=== PATIENT | female | born 2000 | race Caucasian/White ===

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

== ENCOUNTER 2019-03-09 07:49 | Emergency (ER) | payer SELFPAY ==
[~2019-03-09] VITALS: Ht 165.1 cm; Wt 71.8 kg
[2019-03-09 07:54] VITALS: BP 134/63; PULSE 119; RESP 18; Ht 165.1 cm; Wt 71.8 kg
== END 2019-03-09 08:12 | disposition left against medical advice (07) ==
LOC: E/R 07:49
DX: Z53.21 Procedure and treatment not carried out due to patient leaving prior to being seen by health care provider (principal)

== ENCOUNTER 2019-03-09 08:23 | Outpatient (CLI) | payer BC ==
[~2019-03-09] VITALS: Ht 167.6 cm; Wt 71.8 kg
[2019-03-09 09:14] VITALS: Ht 167.6 cm; Wt 71.8 kg
[2019-03-09 09:15] VITALS: BP 115/69; PULSE 93; RESP 18
--- NOTE | 2019-03-09 11:49 | PSY ---
Date/Time of Note Date/Time of Note DATE: 03/09/19 TIME: 11:42 Psychiatric Subjective Eval Consent Pt consented to telemedicine: No Subjective Evaluation Patient location: inpatient History of present illness Patient is a 18-year-old female who is currently admitted in labor and delivery. On a [id number] evaluation, patient states she is expecting quadruplets, she is increasingly agitated when she was told that her test is negative and she was not . Patient started using obscenities, cursing the interviewer and stated that [facility] is not a good hospital because I cannot identify positive test. Patient's is focused on the facts that [facility] told her that she is . She has poor impulse control and poor coping skills discussed the risk and benefits of medication antipsychotic to help with the delusion but she declined. Patient actually got more irritable when medications were being discussed. Past psychiatric history Denies history of mental illness Hospitalization: other Medical history Problems Medical Problems: (1) Abdominal pain Status: Acute (2) Abdominal pain Status: Acute (3) Abdominal pain Status: Acute (4) Acute kidney insufficiency Status: Acute (5) Anxiety Status: Acute (6) Back pain Status: Acute (7) Constipation Status: Acute (8) Drug abuse Status: Acute (9) Dysfunctional uterine bleeding Status: Acute (10) Generalized body aches Status: Acute (11) Ovarian cyst Status: Acute (12) Pseudopregnancy Status: Acute (13) UTI (urinary tract infection) Status: Acute (14) UTI (urinary tract infection) Status: Acute (15) Vomiting Status: Acute Allergies: Coded Allergies: No Known Drug Allergies (Verified Allergy, Unknown, 03/11/18) Substance Abuse Substance abuse history: Yes (History of meth use last use was a week ago) Prior substance abuse treatmen: Yes Social History Marital status: other DPA/Conservatorship: No Psychiatric Objective Eval Review of Systems: Review of Systems: Not Applicable Physical Examination: Physical Examination: Not Applicable Energy: Adequate Interest: Adequate Mental Status Examination: Appearance: Groomed Eye Contact: Good Psychomotor Activity: Normal Behavior: Cooperative (But paranoid) Speech: Clear AFFECT: Flat Mood: Angry, Irritable Though Process: Tangential Orientation: x4 Insight: Severe Judgement: Severe Attention Span: Distractible Assessment and Plan Assessment/Diagnosis Diagnosis Psychosis not otherwise specified Recommendation/Plan Medication Management Declined Multiple antipsychotics: No Psychotherapy Provide supportive therapy Discharge Disposition: Other Legal Status: Voluntary DOREEN FAIRBANKS NP March 09, 2019 11:49
--- NOTE | 2019-03-09 13:30 | EN ---
Date/Time of Note Date/Time of Note DATE: 03/09/19 TIME: 13:29 Event Note Medicine Medicine Event Note Rapid response team was called. Patient is a 18-year-old female who is not , who insists that she is. Multiple work-up was done, patient was deemed likely psych, nurse practitioner psychiatry had reportedly tried to see her however she kicked her out. Patient had her eyes closed however was breathing normally, vital signs completely within normal limits, blood pressure within normal limits, O2 saturation well into the upper 90s. Patient would respond and even yell into full complete sentences indicating that she is alert and oriented x4. Patient does have a significant psych component to what ever is going on right now. This is highly unlikely a true medical emergency. Patient was exhibiting some tightening and shaking of her right hand however once this was questioned she proceeded to stop tightening and shaking and instead begin to be verbally abusive to the staff and myself, once again speaking in full and complete sentences with no other indications suggesting true altered mental status. Housing hall supervisor and charge nurse will now take over and continue to speak with patient, I recommend sending to ER for psych eval. SHERRY DE LEON March 09, 2019 13:30
== END 2019-03-09 13:47 | disposition home or self-care (01) ==
LOC: OBT 08:23 → L-D 08:25 → OBT 13:47
PROVIDERS: ATTEND Obstetrics & Gynecology Obstetrics
DX: Z32.02 Encounter for pregnancy test, result negative (principal); F45.8 Other somatoform disorders; R10.9 Unspecified abdominal pain; N93.8 Other specified abnormal uterine and vaginal bleeding; N39.0 Urinary tract infection, site not specified; F19.10 Other psychoactive substance abuse, uncomplicated; M54.9 Dorsalgia, unspecified; F41.9 Anxiety disorder, unspecified; F15.11 Other stimulant abuse, in remission
CPT/HCPCS: 76856; 80307; 84703; Z7500; Z7610; A4310; G0463

== ENCOUNTER 2019-03-09 13:49 | Emergency (ER) | payer BC ==
[~2019-03-09] VITALS: Wt 58.0 kg
--- NOTE | 2019-03-09 14:21 | ERD ---
ER Documentation Chief Complaint Chief Complaint HPI This is a 18-year-old female that had presented to the emergency department at [facility] stating that she was experiencing abdominal pain and that she was 23 weeks . The patient immediately went up to labor and delivery. They had performed an ultrasound and ancillary laboratory work and indicated to the patient that she was not . At that time she became very upset and started to yell at nursing staff had called the psychiatric nurse practitioner Melissa. Melissa had come into the room but the patient yelled at her and refused to speak with her. I spoke with the labor and delivery nurse who indicates they have seen the patient in the past. On a previous hospital visit she indicated that she was with triplets and again was found not to be . Today she stated she would be roughly 23 weeks . She stated her last menstrual cycle was 23 weeks ago. She states she has no care. She utilized crystal meth 2 days ago and states she is trying to become clean. She indicates she is experiencing abdominal cramping and believes she is in labor. Again the ultrasound transvaginal have been performed upstairs and there is no intrauterine . Her urine test was negative. She denies any suicidal homicidal thoughts or ideations. ROS All systems reviewed and are negative except as per history of present illness. Medications Home Meds No Active Prescriptions or Reported Meds Allergies Allergies: Coded Allergies: No Known Drug Allergies (Verified Allergy, Unknown, 03/11/18) PMhx/Soc History of Surgery: No Anesthesia Reaction: No Hx Neurological Disorder: Yes (seizure) Hx Respiratory Disorders: Yes (bronchitis) Hx Cardiac Disorders: Yes (heart murmur,high cholesterol) Hx Psychiatric Problems: Yes (hyperventilation,depression,anxiety) Hx Miscellaneous Medical Probl: Yes (acute kidney injury,pseudopregnancy,anemia,ovarian cyst) Hx Alcohol Use: No Hx Substance Use: Yes (marijuana) Hx Tobacco Use: No Physical Exam Vitals Vital Signs Date Temp Pulse Resp B/P (MAP) Pulse Ox O2 O2 Flow FiO2 Time Delivery Rate 03/09/19 98.1 121 18 127/75 99 Room Air 14:37 (92) 03/09/19 98.1 88 18 135/78 98 14:08 (97) Physical Exam Constitutional:Well-developed. Well-nourished. HEENT:Normocephalic. Atraumatic.Pupils were equal round reactive to light. Moist mucous membranes.No tonsillar exudates. Neck: No nuchal rigidity. No lymphadenopathy. No posterior cervical spine tenderness or step-offs. Respiratory: Not using accessory muscles of respiration.Lungs were clear to auscultation bilaterally. No rhonchi. No rales. No wheezing. Cardiovascular: Regular rate regular rhythm.No murmurs. No rubs were appreciated.S1, S2 normal. Distal pulses are palpable 2+ bilaterally. GI: Abdomen was soft. No gravid uterus. Nontender. Non Distended. No pulsatile abdominal masses or bruits. No rebound. No guarding. Bowel sounds were present and normal. Muscle skeletal: Full range of motion of both the upper and lower extremities bi laterally.Normal muscle tone.No assymetrical calf tenderness or swelling. Skin: No petechia, no purpura. No lesions on the palms or the soles of the feet. No maculopapular rash. NEURO: Patient was alert, awake, orientated x3.No facial droop. Gait observed and normal with no ataxia.Speech had regular rate and rhythm. No focal neurological deficits. PSYCH: The patient made poor eye contact. She would become very upset and yell very easily when asked questions. She stated she is still . She Rubbing her abdomen as she states she needs to protect her baby. She denied any suicidal homicidal thoughts ideations. Patient was experiencing tactile hallucinations she states she could feel the baby kicking. Result Diagram: 03/09/19 1430 03/09/19 1430 Results 24 hrs Laboratory Tests Test 03/09/19 14:30 White Blood Count 9.4 10^3/ul Red Blood Count 4.42 10^6/ul Hemoglobin 12.3 g/dl Hematocrit 36.8 % Mean Corpuscular Volume 83.3 fl Mean Corpuscular Hemoglobin 27.8 pg Mean Corpuscular Hemoglobin Concent 33.4 g/dl Red Cell Distribution Width 12.7 % Platelet Count 428 10^3/UL Mean Platelet Volume 8.7 fl Immature Granulocytes % 0.300 % Neutrophils % 63.8 % Lymphocytes % 25.1 % Monocytes % 10.0 % Eosinophils % 0.3 % Basophils % 0.5 % Nucleated Red Blood Cells % 0.0 /100WBC Immature Granulocytes # 0.030 10^3/ul Neutrophils # 6.0 10^3/ul Lymphocytes # 2.4 10^3/ul Monocytes # 0.9 10^3/ul Eosinophils # 0.0 10^3/ul Basophils # 0.1 10^3/ul Nucleated Red Blood Cells # 0.0 10^3/ul Prothrombin Time 14.0 Sec Prothrombin Time Ratio 1.1 INR International Normalized Ratio 1.07 Activated Partial Thromboplast Time 28.9 Sec Sodium Level 140 mmol/L Potassium Level 3.5 mmol/L Chloride Level 107 mmol/L Carbon Dioxide Level 21 mmol/L Anion Gap 12 Blood Urea Nitrogen 11 mg/dl Creatinine 0.56 mg/dl Est Glomerular Filtrat Rate mL/min > 60 mL/min Glucose Level 95 mg/dl Calcium Level 9.7 mg/dl Total Bilirubin 0.8 mg/dl Direct Bilirubin 0.00 mg/dl Indirect Bilirubin 0.8 mg/dl Aspartate Amino Transf (AST/SGOT) 17 IU/L Alanine Aminotransferase (ALT/SGPT) 23 IU/L Alkaline Phosphatase 70 IU/L Total Protein 7.8 g/dl Albumin 4.7 g/dl Globulin 3.10 g/dl Albumin/Globulin Ratio 1.51 Serum HCG, Qualitative NEGATIVE Salicylates Level < 1.0 mg/dl Acetaminophen Level < 10.0 ug/ml Ethyl Alcohol Level < 10.0 mg/dl Procedures/MDM This patient presented to the emergency department with acute psychosis and my differential diagnosis included but was not limited to ruling out life threatening causes of acute psychosis such as Wernickes encephalopathy, hypoxia, hypoglycemia, hypertensive encephalopathy, intracerebral hemorrhage, meningitis, poisoning. After my evaluation and workup on the patient I was able to exclude medical and reversible causes of the patients psychosis. It was my clinical impression the patients symptoms were an exacerbation of a possible psychiatric disorder; therefore, the patient was medically cleared by myself at this time for psychiatric evaluation and possible transfer. The patient's urine was negative. A transvaginal ultrasound indicated no intrauterine . Therefore this was informed to the patient but she was still very adamant that she is 23 weeks and believes she was in labor. The patient did become severely agitated during medical assessment. Reassurance and verbal de-escalation were successful in calming the patient down. The labor and delivery nurse had been able to contact the patient's sister and mother who are currently on their way. The patient states she has no underlying psychiatric history. The patient states that she has "verbal seizures." She indicates that if she gets asked to many questions she will have a verbal seizure. The patient was seen by her telemetry psychiatrist. We did not feel that the patient met criteria for 5150. She was given outpatient resources and repeat abdominal examination was benign. The patient did not have any reproducible abdominal tenderness and I felt her symptoms were all from hallucinations creating her pseudo-. The patient was discharged home in fair condition. They were instructed to return to the emergency department at any time if there was any worsening of their condition. The patient stated they would follow up with their PCP in the next 24-48 hours to initiate a suitable medication regimen under the care of their PCP as well as to allow their PCP to monitor any drug reactions. The patient was discharged home with prescriptions after they gave informed consent to the new medication. They were also fully informed by myself on the adverse effects and adverse drug interactions in order to provide adequate safeguards to prevent possible adverse reactions to medications. Departure Diagnosis: Primary Impression: Hallucinations Additional Impression: Psychosis Condition: SOPHIA Bejarano MD March 09, 2019 14:16
--- NOTE | 2019-03-09 16:04 | PSY ---
Date/Time of Note Date/Time of Note DATE: 03/09/19 TIME: 15:59 Psychiatric Subjective Eval Consent Pt consented to telemedicine: Yes Subjective Evaluation Patient location: emergency Chief Complaint: abd pain and states she is 22 wks preg, ob states no preg, delusions susp History of present illness 18 yo unemployed female with hx meth use presents to ED c/o abdominal pain and insists she is . Pt is irritable, using profanities. She apparently was going from one ED to another "Aldo Burkett told me I am regnant, Rebeca told me I am , I know my boy" At the same time she says she was never seen by a plunket nurse. Says she is tired and will have a seizure if she will be asked questions about her mental health. Denies SI or HI, denies AH or Vh. ADmits to meth use. Past psychiatric history prior inpt Hospitalization: yes Medical history Problems Medical Problems: (1) Abdominal pain Status: Acute (2) Abdominal pain Status: Acute (3) Abdominal pain Status: Acute (4) Acute kidney insufficiency Status: Acute (5) Anxiety Status: Acute (6) Back pain Status: Acute (7) Constipation Status: Acute (8) Drug abuse Status: Acute (9) Dysfunctional uterine bleeding Status: Acute (10) Generalized body aches Status: Acute (11) Ovarian cyst Status: Acute (12) Pseudopregnancy Status: Acute (13) UTI (urinary tract infection) Status: Acute (14) UTI (urinary tract infection) Status: Acute (15) Vomiting Status: Acute Allergies: Coded Allergies: No Known Drug Allergies (Verified Allergy, Unknown, 03/11/18) Substance Abuse Substance abuse history: Yes Prior substance abuse treatmen: Yes Social History Marital status: single Level of education: 10th grade Occupation/[employer]: lives with mother Psychiatric Objective Eval Mental Status Examination: Appearance: Groomed Eye Contact: Good Psychomotor Activity: Agitated Behavior: Hostile Speech: Clear AFFECT: Guarded Mood: Angry Though Process: Circumstantial Thought Content: Delusions Suicidal: No Homicidal: No On 72 hour hold: No Orientation: x4 Insight: Impared Judgement: Impared Laboratory Results Laboratory Tests Test 03/09/19 14:30 White Blood Count 9.4 10^3/ul Red Blood Count 4.42 10^6/ul Hemoglobin 12.3 g/dl Hematocrit 36.8 % Mean Corpuscular Volume 83.3 fl Mean Corpuscular Hemoglobin 27.8 pg Mean Corpuscular Hemoglobin Concent 33.4 g/dl Red Cell Distribution Width 12.7 % Platelet Count 428 10^3/UL Mean Platelet Volume 8.7 fl Immature Granulocytes % 0.300 % Neutrophils % 63.8 % Lymphocytes % 25.1 % Monocytes % 10.0 % Eosinophils % 0.3 % Basophils % 0.5 % Nucleated Red Blood Cells % 0.0 /100WBC Immature Granulocytes # 0.030 10^3/ul Neutrophils # 6.0 10^3/ul Lymphocytes # 2.4 10^3/ul Monocytes # 0.9 10^3/ul Eosinophils # 0.0 10^3/ul Basophils # 0.1 10^3/ul Nucleated Red Blood Cells # 0.0 10^3/ul Prothrombin Time 14.0 Sec Prothrombin Time Ratio 1.1 INR International Normalized Ratio 1.07 Activated Partial Thromboplast Time 28.9 Sec Sodium Level 140 mmol/L Potassium Level 3.5 mmol/L Chloride Level 107 mmol/L Carbon Dioxide Level 21 mmol/L Anion Gap 12 Blood Urea Nitrogen 11 mg/dl Creatinine 0.56 mg/dl Est Glomerular Filtrat Rate mL/min > 60 mL/min Glucose Level 95 mg/dl Calcium Level 9.7 mg/dl Total Bilirubin 0.8 mg/dl Direct Bilirubin 0.00 mg/dl Indirect Bilirubin 0.8 mg/dl Aspartate Amino Transf (AST/SGOT) 17 IU/L Alanine Aminotransferase (ALT/SGPT) 23 IU/L Alkaline Phosphatase 70 IU/L Total Protein 7.8 g/dl Albumin 4.7 g/dl Globulin 3.10 g/dl Albumin/Globulin Ratio 1.51 Serum HCG, Qualitative NEGATIVE Salicylates Level < 1.0 mg/dl Acetaminophen Level < 10.0 ug/ml Ethyl Alcohol Level < 10.0 mg/dl Assessment and Plan Assessment/Diagnosis Diagnosis Unspecified psychosis Recommendation/Plan Medication Management Haldol 1 mg PO BID Multiple antipsychotics: Yes Discharge Disposition: Community (home) Legal Status: Voluntary Other pt does not meet inpt psych care criteria - no dts, nodto, nogd; please refer to [facility] rehab and outpt mental health. RITA PASTOR MD March 09, 2019 16:04
[2019-03-09 17:53] VITALS: BP 117/63; PULSE 106; RESP 16
--- NOTE | 2019-03-09 19:02 | PN ---
Triage Information Date/Time March 09, 2019 Reason for visit: Patient was sent from emergency room since the patient claims that she is with twins. Weeks of Gestation /NA /Para 4 para 4 Diabetes: none Hypertention: none Additional information 18-year-old Objective Vital Signs Date Temp Pulse Resp B/P (MAP) Pulse Ox O2 O2 Flow FiO2 Time Delivery Rate 03/09/19 106 16 117/63 99 Room Air 17:53 (81) 03/09/19 98.1 14:37 Results/Medications Result Diagram: 03/09/19 1430 03/09/19 1430 Results 24 hrs Laboratory Tests Test 03/09/19 14:30 White Blood Count 9.4 Red Blood Count 4.42 Hemoglobin 12.3 Hematocrit 36.8 L Mean Corpuscular Volume 83.3 Mean Corpuscular Hemoglobin 27.8 L Mean Corpuscular Hemoglobin Concent 33.4 Red Cell Distribution Width 12.7 Platelet Count 428 H Mean Platelet Volume 8.7 Immature Granulocytes % 0.300 Neutrophils % 63.8 Lymphocytes % 25.1 Monocytes % 10.0 Eosinophils % 0.3 Basophils % 0.5 Nucleated Red Blood Cells % 0.0 Immature Granulocytes # 0.030 Neutrophils # 6.0 Lymphocytes # 2.4 Monocytes # 0.9 Eosinophils # 0.0 Basophils # 0.1 Nucleated Red Blood Cells # 0.0 Prothrombin Time 14.0 Prothrombin Time Ratio 1.1 INR International Normalized Ratio 1.07 Activated Partial Thromboplast Time 28.9 Sodium Level 140 Potassium Level 3.5 Chloride Level 107 Carbon Dioxide Level 21 Anion Gap 12 Blood Urea Nitrogen 11 Creatinine 0.56 Est Glomerular Filtrat Rate mL/min > 60 Glucose Level 95 Calcium Level 9.7 Total Bilirubin 0.8 Direct Bilirubin 0.00 Indirect Bilirubin 0.8 Aspartate Amino Transf (AST/SGOT) 17 Alanine Aminotransferase (ALT/SGPT) 23 Alkaline Phosphatase 70 Total Protein 7.8 Albumin 4.7 Globulin 3.10 Albumin/Globulin Ratio 1.51 Serum HCG, Qualitative NEGATIVE Salicylates Level < 1.0 L Acetaminophen Level < 10.0 L Ethyl Alcohol Level < 10.0 H DARINEL PHILIPPE MD March 09, 2019 19:02
== END 2019-03-09 17:57 | disposition home or self-care (01) ==
LOC: E/R 13:49
DX: F29 Unspecified psychosis not due to a substance or known physiological condition (principal); R10.9 Unspecified abdominal pain
CPT/HCPCS: 80053; 80307; 84703; 85025; 85610; 85730; Z7502; 99285